=== PATIENT | female | born 1985 | race Caucasian/White ===

== ENCOUNTER 2017-08-08 22:13 | Emergency (ER) | payer OTHER ==
[~2017-08-08] VITALS: Ht 152.4 cm; Wt 77.1 kg
[2017-08-08 22:15] VITALS: BP 152/95
--- NOTE | 2017-08-08 22:23 | NUR ---
to lobby. amb, a/w bed, vss, ekg done - nsr, ermd noted
--- NOTE | 2017-08-08 23:30 | NUR ---
TO ER BED 2
--- NOTE | 2017-08-08 23:35 | NUR ---
ASSUMED CARE OF PT AT THIS TIME. 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 NO RESPIRATORY DISTRESS NOTED...PT SPEAKS IN FULL SENTENCES. SKIN IS PINK/WARM/DRY; AAOX4 WITH EVEN AND STEADY GAIT; LUNGS CLEAR BL; HR EVEN AND REGULAR; PT DENIES ANY FEVER OR COUGH AT THIS TIME; PATIENT STATES PAIN OF 10/10 AT THIS TIME; VSS; PATIENT POSITIONED FOR COMFORT; HOB ELEVATED; BEDRAILS UP X2; BED DOWN. ER MD MADE AWARE OF PT STATUS. WILL CONTINUE TO MONITOR.
[2017-08-09] MEDS ORDERED: KETOROLAC 60 MG/2 ML VIAL IM ONE (00:10)
[2017-08-09 00:50] VITALS: BP 148/92
--- NOTE | 2017-08-09 00:50 | NUR ---
Patient discharged with v/s stable. Written and verbal after care instructions given and explained. Patient alert, oriented and verbalized understanding of instructions. Ambulatory with steady gait. All questions addressed prior to discharge. ID band removed. Patient advised to follow up with PMD. Rx of PREDNISONE AND MOTRIN given. Patient educated on indication of medication including possible reaction and side effects. Opportunity to ask questions provided and answered.
== END 2017-08-09 00:50 | disposition home or self-care (01) ==
LOC: MED 22:13
DX: R07.89 Other chest pain (principal); R06.02 Shortness of breath; Z79.899 Other long term (current) drug therapy
CPT/HCPCS: 71046; 93005; 96372; 99284; J1885